=== PATIENT | female | born 2000 | race Two or more races ===

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

== ENCOUNTER 2020-12-25 23:09 | Emergency (ER) | payer MEDICAID ==
[~2020-12-25] VITALS: Ht 162.6 cm; Wt 59.7 kg
[~2020-12-25 23:09] MED LIST: FLUO10CA15 PO; QUET100T4 PO
[2020-12-25 23:12] VITALS: BP 115/74
--- NOTE | 2020-12-25 23:47 | NUR ---
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
--- NOTE | 2020-12-25 23:52 | NUR ---
pt presents to the ed after vomitting twice today. Pt states she woke up at 3 am this morning and vomitted once and then vomitted again before coming to the ed. pt also states that she has been hot and cold all day. pt in gown, resting on gurney and placed on continuous monitoring.
[2020-12-26] MEDS ORDERED: IBUPROFEN 600 MG TABLET ONE (00:07)
[2020-12-26] MEDS ORDERED: PROMETHAZINE 25MG TABLET ONE (00:07)
--- NOTE | 2020-12-26 00:19 | NUR ---
pt medicated and swabbed for COVID
[2020-12-26] MEDS ORDERED: PROMETHAZINE 25MG TABLET PO PRN (00:30)
[2020-12-26] MEDS ORDERED: IBUPROFEN 600 MG TABLET PO ONE (00:30)
--- NOTE | 2020-12-26 00:45 | NUR ---
Patient given discharge instructions and they have confirmed that they understand the instructions. Patient ambulatory with steady gait.
== END 2020-12-26 01:27 | disposition home or self-care (01) ==
LOC: ED 12-26 00:10
DX: B34.9 Viral infection, unspecified (principal); Z20.822 Contact with and (suspected) exposure to COVID-19
CPT/HCPCS: 99283; Q0169; U0003; U0005